=== PATIENT | female | born 1965 | race Caucasian/White ===

== ENCOUNTER 2020-12-03 10:07 | Emergency (ER) | payer MEDICAID ==
--- NOTE | 2020-12-03 11:05 | EDM.PDOC ---
ED HPI GENERAL MEDICAL PROBLEM - General Chief Complaint: Bite:Animal, Insect Stated Complaint: LEFT HAND BAT BITE Time Seen by Provider: 12/03/20 10:35 Source of Information: Reports: Patient History Limitations: Reports: No Limitations - History of Present Illness INITIAL COMMENTS - FREE TEXT/NARRATIVE: This patient presents to the emergency department for evaluation of what she believes to be a bat bite on her hand. She is quite concerned that she has rabies and is interested in vaccination. She states that they are moving from an older home in [facility] to this area and slept in that home on Wednesday, November 30. A couple of days after that she noticed 2 punctate lesions on her right hand. She is not sure how she got these but did notice some bleeding. She states that when the house they had slept in on November 30 was assessed for sale, the meteorology teacher left a an attic door open. They believe there were bats living in the attic of the home. There is no information as to whether there was a bat in the sleeping room. The patient and her deny seeing a bat or hearing a bat. There is also no back 10 noted in the bedroom. She has no symptoms or concerns including fever, shortness of breath, chest pain, muscle cramps, other concerns or complaints. - Related Data Allergies Allergy/AdvReac Type Severity Reaction Status Date / Time Penicillins Allergy Anaphylactic Verified 12/03/20 10:31 Shock Sulfa (Sulfonamide Allergy Hives Verified 12/03/20 10:31 Antibiotics) Home Meds: Home Meds Levothyroxine Sodium [Levothyroxine] 100 mcg PO DAILY 12/03/20 [History] Omeprazole 20 mg PO DAILY 12/03/20 [History] ED ROS GENERAL - Review of Systems Review Of Systems: See Below ED EXAM, ANIMAL BITE - Physical Exam Exam: See Below Exam Limited By: No Limitations General Appearance: Alert, WD/WN, No Apparent Distress Eye Exam: Bilateral Eye: PERRL Ears: Normal External Exam Nose: Normal Inspection Throat/Mouth: Normal Inspection Head: Atraumatic, Normocephalic Neck: Normal Inspection, Full Range of Motion Respiratory/Chest: No Respiratory Distress, No Accessory Muscle Use Neurological: Alert, Oriented Psychiatric: Normal Affect Skin Exam: Normal Color, Warm/Dry, Other (2 tiny puncture wounds noted in the thenar eminence of her left hand.) Course - Vital Signs Last Recorded V/S: Last Vital Signs Temp 36.4 C 12/03/20 10:32 Pulse 91 12/03/20 10:32 Resp 18 12/03/20 10:32 BP 144/79 H 12/03/20 10:32 Pulse Ox 100 12/03/20 10:32 - Re-Assessments/Exams Free Text/Narrative Re-Assessment/Exam: 12/03/20 12:49 This patient presents to the emergency department for concerns of rabies. She is concerned that she may have been bitten by a bat. I did contact the [facility] rabies hotline and spoke to the roofing sales representative there who did not believe the patient required rabies vaccine at this point given no bat was seen nor were that was there any evidence of the bat being in the room. Possible the woman had the puncture wounds from something else. At any rate the patient was instructed to contact the rabies hotline directly and number was given. She should discuss her concerns with them and determine whether she chooses to receive the vaccine. The patient was stable at the time of discharge. 12/03/20 12:51 Departure - Departure Time of Disposition: 11:10 Disposition: Home, Self-Care 01 Condition: Good Clinical Impression: Rabies, unspecified Qualifiers: Rabies type: urban Qualified Code(s): A82.1 - Urban rabies - Discharge Information *PRESCRIPTION DRUG MONITORING PROGRAM REVIEWED*: Not Applicable *COPY OF PRESCRIPTION DRUG MONITORING REPORT IN PATIENT KATHIE: Not Applicable Referrals: PCP,None [Primary Care Provider] - Forms: ED Department Discharge Additional Instructions: Call [facility] to discuss further. Sepsis Event Note (ED) - Evaluation Sepsis Screening Result: No Definite Risk - Focused Exam Vital Signs: Vital Signs Temp Pulse Resp BP Pulse Ox 12/03/20 10:32 36.4 C 91 18 144/79 H 100
== END 2020-12-03 11:10 | disposition home or self-care (01) ==
LOC: LB.ED 10:07
DX: A00-B99 Certain infectious and parasitic diseases (principal); Z88.2 Allergy status to sulfonamides; Z88.0 Allergy status to penicillin; S61.432A Puncture wound without foreign body of left hand, initial encounter; W61.91XA Bitten by other birds, initial encounter
CPT/HCPCS: 99283